=== PATIENT | male | born 1935 | race Hispanic/Latino ===

== ENCOUNTER 2018-12-01 10:16 | Emergency (ER) | payer OTHER ==
[2018-12-01] MEDS ORDERED: CEFTRIAXONE SODIUM 1 GM ONE (11:08)
== END 2018-12-01 11:28 | disposition home or self-care (01) ==
LOC: EDH 10:16
DX: S50.872A Other superficial bite of left forearm, initial encounter (principal); E11.9 Type 2 diabetes mellitus without complications; I10 Essential (primary) hypertension; E78.00 Pure hypercholesterolemia, unspecified; Z98.890 Other specified postprocedural states; W55.01XA Bitten by cat, initial encounter; Y93.89 Activity, other specified; Y92.89 Other specified places as the place of occurrence of the external cause; Y99.8 Other external cause status
CPT/HCPCS: 96374; 99284; J0696